=== PATIENT | female | born 1975 | race Caucasian/White ===

== ENCOUNTER 2019-03-14 11:12 | Emergency (ER) | payer OTHER ==
[~2019-03-14] VITALS: Ht 152.4 cm; Wt 67.1 kg
--- NOTE | 2019-03-14 11:19 | NUR ---
Patient ambulated to bed 3 with family. RN evaluating patient at bedside.
[2019-03-14 11:21] VITALS: BP 120/81
--- NOTE | 2019-03-14 11:38 | NUR ---
IV INSERTED AND LABS DRAWN BEDSIDE
--- NOTE | 2019-03-14 11:39 | NUR ---
PT STATES SHE HAD A CERVICAL BIOPSY TO CHECK FOR CERVICAL CANCER (TODAY) AND WAS TOLD BY HER OBGYN TO COME TO THE ER TO HAVE HER "LABS CHECKED FOR SURGERY". PT SKIN COLORED PALE UPON VISUAL EXAMINATION. VSS. [id number]. BED IS DOWN, LOCKED, BED RAIL X 1, ERMD TO SEE PT. HX: HTN RX: NAMES UNKNOWN
--- NOTE | 2019-03-14 12:17 | NUR ---
Dr. Harry evaluating patient at bedside.
[2019-03-14 12:49] LABS: BASOPHILS # (AUTO) 0.1 K/uL (0.00-0.22); BASOPHILS % (AUTO) 0.8 % (0.0-2.0); EOSINOPHILS # (AUTO) 0.8 K/uL (0-0.4); EOSINOPHILS % (AUTO) 7.5 % (0.0-4.0); HEMATOCRIT 28.4 % (36-48); HEMOGLOBIN 9.1 g/dL (12.0-16.0); LYMPHOCYTES # (AUTO) 1.9 K/uL (2.5-16.5); LYMPHOCYTES % (AUTO) 16.8 % (20.5-51.1); MEAN CORPUSCULAR HEMOGLOBIN 26 pg (27-31); MEAN CORPUSCULAR HGB CONC 32 g/dL (33-37); MEAN CORPUSCULAR VOLUME 82.3 fL (80-94); MONOCYTES # (AUTO) 0.7 K/uL (0.8-1.0); MONOCYTES % (AUTO) 5.8 % (1.7-9.3); NEUTROPHILS # (AUTO) 7.8 K/uL (1.8-7.7); NEUTROPHILS % (AUTO) 69.1 % (42.2-75.2); PLATELET COUNT (AUTO) 794 K/uL (140-450); RED BLOOD CELL COUNT(AUTO) 3.45 MIL/uL (4.20-5.40); WHITE BLOOD COUNT (AUTO) 11.3 K/uL (4.8-10.8)
[2019-03-14 12:57] LABS: PROTHROMBIN TIME 9.4 secs (10.8-13.4)
[2019-03-14 13:07] LABS: CARBON DIOXIDE 29.1 mmol/L (21-32); CREATININE 1.1 mg/dL (0.6-1.3); POTASSIUM 4.1 mmol/L (3.5-5.1)
[2019-03-14 13:13] LABS: ALBUMIN 2.6 g/dL (3.4-5.0); TOTAL BILIRUBIN 0.2 mg/dL (0.0-1.0)
--- NOTE | 2019-03-14 13:21 | NUR ---
VSS AT THIS TIME. PT [id number]
[2019-03-14 13:42] VITALS: BP 97/54
--- NOTE | 2019-03-14 13:42 | NUR ---
Patient discharged with v/s stable. Written and verbal after care instructions given and explained. Patient verbalized understanding. Ambulatory with steady gait. All questions addressed prior to discharge. Advised to follow up with OBGYN. PT GIVEN A COPY OF ALL LAB RESULTS.
== END 2019-03-14 13:42 | disposition home or self-care (01) ==
LOC: MED 11:47
DX: N93.9 Abnormal uterine and vaginal bleeding, unspecified (principal); D64.9 Anemia, unspecified; I10 Essential (primary) hypertension; Z85.41 Personal history of malignant neoplasm of cervix uteri
CPT/HCPCS: 36415; 80053; 81025; 85025; 85610; 85730; 86886; 86900; 86901; 93005; 99284

== ENCOUNTER 2020-01-19 18:55 | Emergency (ER) | payer OTHER ==
[~2020-01-19] VITALS: Ht 152.4 cm; Wt 72.6 kg
[2020-01-19 19:00] VITALS: BP 150/83
--- NOTE | 2020-01-19 19:16 | NUR ---
ERMD AT BEDSIDE
--- NOTE | 2020-01-19 19:17 | NUR ---
44 Y/O FEMALE C/O LOWER ABD PAIN X2DAYS. 7/10 SHARP, THROBBING PAIN. TENDER TO TOUCH. DENIES FEVER, N/V/D, COUGH, SICK CONTACT, OR TRAUMA TO ABDOMEN. BOWEL SOUNDS ACTIVE. PMH: CERVICAL CANCER TX WITH CHEMO & RADIATION, HTN, MIGRAINES NKA. MEDS: ATENOLOL, BUNAZEPRL-HYDROCHLORTHIAZIDE, FIORICET, ERGOCALCIFEROL, MISC. DEVICES, OMEPRAZOLE, TRAMADOL
[2020-01-19] MEDS ORDERED: KETOROLAC 15 MG/ML VIAL IVP ONE (19:25)
[2020-01-19] MEDS ORDERED: ACETAMINOPHEN 325 MG TAB PO ONE (19:25)
--- NOTE | 2020-01-19 20:02 | NUR ---
[facility].
--- NOTE | 2020-01-19 20:20 | NUR ---
Pelvic exam performed by ANN HENNESSY with this RN at bedside for entire examination. Patient tolerated procedure well. Patient assisted to position of comfort after examination.
[2020-01-19 20:23] LABS: BASOPHILS % (AUTO) 0.5 % (0.0-2.0); EOSINOPHILS # (AUTO) 0.1 K/uL (0-0.4); EOSINOPHILS % (AUTO) 2.6 % (0.0-4.0); HEMATOCRIT 34.5 % (36-48); HEMOGLOBIN 11.6 g/dL (12.0-16.0); LYMPHOCYTES # (AUTO) 0.9 K/uL (2.5-16.5); LYMPHOCYTES % (AUTO) 18.1 % (20.5-51.1); MEAN CORPUSCULAR HEMOGLOBIN 31 pg (27-31); MEAN CORPUSCULAR HGB CONC 34 g/dL (33-37); MEAN CORPUSCULAR VOLUME 93.3 fL (80-94); MONOCYTES # (AUTO) 0.3 K/uL (0.8-1.0); MONOCYTES % (AUTO) 6.5 % (1.7-9.3); NEUTROPHILS # (AUTO) 3.5 K/uL (1.8-7.7); NEUTROPHILS % (AUTO) 72.3 % (42.2-75.2); PLATELET COUNT (AUTO) 283 K/uL (140-450); RED CELL DISTRIBUTION WIDTH 13.1 % (11.6-13.7); WHITE BLOOD COUNT (AUTO) 4.8 K/uL (4.8-10.8)
[2020-01-19 20:23] LABS: BILIRUBIN,URINE NEGATIVE (NEGATIVE); BLOOD, URINE NEGATIVE (NEGATIVE); COLOR,URINE YELLOW (YELLOW); LEUKOCYTE ESTERASE ,URINE 1+ (NEGATIVE); NITRITE, URINE NEGATIVE (NEGATIVE); PH,URINE 5.5 (5.0-9.0); UGLUCOSE NEGATIVE (NEGATIVE)
[2020-01-19 20:24] LABS: APPEARANCE,URINE HAZY (CLEAR)
[2020-01-19 20:34] LABS: RBC,URINE NONE SEEN /HPF (0-5)
[2020-01-19 20:43] LABS: CARBON DIOXIDE 29.5 mmol/L (21-32); CREATININE 1.5 mg/dL (0.6-1.3); POTASSIUM 3.5 mmol/L (3.5-5.1); TOTAL BILIRUBIN 0.3 mg/dL (0.0-1.0)
--- NOTE | 2020-01-19 22:16 | NUR ---
PT RESTING IN BED, RESPIRATIONS EVEN AND UNLABORED. CHEST RISE IS SYMMETRICAL. SAFETY PRECAUTIONS IN PLACE. WILL CONTINUE TO MONITOR.
--- NOTE | 2020-01-19 23:09 | NUR ---
ERMD AT BEDSIDE
[2020-01-19] MEDS ORDERED: HYDROcodone/APAP 5/325 MG 1 TAB TAB PO ONE ×2 (23:15→23:50)
[2020-01-19] MEDS ORDERED: NACL 0.9% 1,000 ML IV ONE ×2 (23:15→23:50)
[2020-01-19] MEDS ORDERED: HYDROcodone/APAP 5/325 MG 1 TAB TAB ONE (23:20)
--- NOTE | 2020-01-19 23:26 | NUR ---
NORCO TAB GIVEN 325 MG PO AND 1L 0.9 NORMAL SALINE BOLUS RUNNING, IV SITE LAC. WILL CONTINUE TO MONITOR.
--- NOTE | 2020-01-20 01:03 | NUR ---
Patient discharged with v/s stable. Written and verbal after care instructions given and explained. Patient alert, oriented and verbalized understanding of instructions. Ambulatory with steady gait. All questions addressed prior to discharge. ID band removed. IV Removed. Patient advised to follow up with PMD. Rx of KEFLEX AND NORCO given. Patient educated on indication of medication including possible reaction and side effects. Opportunity to ask questions provided and answered.
[2020-01-20 01:08] VITALS: BP 145/70
== END 2020-01-20 01:03 | disposition home or self-care (01) ==
LOC: MED 18:55
DX: N39.0 Urinary tract infection, site not specified (principal); I10 Essential (primary) hypertension; Z85.41 Personal history of malignant neoplasm of cervix uteri
CPT/HCPCS: 36415; 74177; 80053; 81001; 81025; 85025; 87210; 96361; 96374; 99285; J1885; J7030; Q9967; 96360

== ENCOUNTER 2021-03-28 00:55 | Emergency (ER) | payer OTHER ==
[~2021-03-28] VITALS: Ht 152.4 cm; Wt 77.1 kg
[2021-03-28 01:05] VITALS: BP 118/53
--- NOTE | 2021-03-28 01:08 | NUR ---
TO LOBBY A/W BED AMBULATORY
[2021-03-28] MEDS ORDERED: NACL 0.9% 1,000 ML IV ONE (01:40)
[2021-03-28 01:50] LABS: BASOPHILS % (AUTO) 0.6 % (0.0-2.0); EOSINOPHILS # (AUTO) 0.2 K/uL (0-0.4); EOSINOPHILS % (AUTO) 2.9 % (0.0-4.0); HEMATOCRIT 34.8 % (36-48); HEMOGLOBIN 11.9 g/dL (12.0-16.0); LYMPHOCYTES # (AUTO) 1.2 K/uL (2.5-16.5); LYMPHOCYTES % (AUTO) 17.6 % (20.5-51.1); MEAN CORPUSCULAR HEMOGLOBIN 31 pg (27-31); MEAN CORPUSCULAR HGB CONC 34 g/dL (33-37); MEAN CORPUSCULAR VOLUME 90.5 fL (80-94); MONOCYTES # (AUTO) 0.5 K/uL (0.8-1.0); MONOCYTES % (AUTO) 7.4 % (1.7-9.3); NEUTROPHILS # (AUTO) 4.9 K/uL (1.8-7.7); NEUTROPHILS % (AUTO) 71.5 % (42.2-75.2); PLATELET COUNT (AUTO) 359 K/uL (140-450); RED BLOOD CELL COUNT(AUTO) 3.84 MIL/uL (4.20-5.40); RED CELL DISTRIBUTION WIDTH 13.9 % (11.6-13.7); WHITE BLOOD COUNT (AUTO) 6.8 K/uL (4.8-10.8)
[2021-03-28 01:50] LABS: APPEARANCE,URINE CLEAR (CLEAR); BILIRUBIN,URINE NEGATIVE (NEGATIVE); BLOOD, URINE TRACE-I (NEGATIVE); COLOR,URINE YELLOW (YELLOW); LEUKOCYTE ESTERASE ,URINE NEGATIVE (NEGATIVE); NITRITE, URINE NEGATIVE (NEGATIVE); UGLUCOSE NEGATIVE (NEGATIVE)
[2021-03-28 02:05] LABS: ALBUMIN 3.5 g/dL (3.4-5.0); ANION GAP 15.9 (8-16); CARBON DIOXIDE 25.4 mmol/L (21-32); CREATININE 1.4 mg/dL (0.6-1.3); POTASSIUM 3.3 mmol/L (3.5-5.1); TOTAL BILIRUBIN 0.1 mg/dL (0.0-1.0)
[2021-03-28 02:33] LABS: RBC,URINE 0-5 /HPF (0-5); WBC,URINE 0-5 /HPF (0-5)
--- NOTE | 2021-03-28 03:22 | NUR ---
Dr. Espinoza examining patient.
[2021-03-28] MEDS ORDERED: KETOROLAC 30 MG/ML VIAL IVP ONE (03:30)
[2021-03-28] MEDS ORDERED: ACET-8386 PO (03:39)
[2021-03-28] MEDS ORDERED: OMEP40EC24 PO (03:39)
--- NOTE | 2021-03-28 04:10 | NUR ---
IV removed, catheter intact and site benign. Applied folded 4x4 gauze and tape to stop bleeding.
[2021-03-28 04:12] VITALS: BP 112/70
--- NOTE | 2021-03-28 04:12 | NUR ---
Patient discharged with v/s stable. Written and verbal after care instructions given and explained. Patient alert, oriented and verbalized understanding of instructions. Ambulatory with steady gait. All questions addressed prior to discharge. ID band removed. Patient advised to follow up with PMD. Rx of hydrocodon-acetaminophen 5-325, and prilosec given. Patient educated on indication of medication including possible reaction and side effects. Opportunity to ask questions provided and answered.
== END 2021-03-28 04:12 | disposition home or self-care (01) ==
LOC: MED 00:55
DX: R10.12 Left upper quadrant pain (principal); I10 Essential (primary) hypertension; Z90.710 Acquired absence of both cervix and uterus; Z85.41 Personal history of malignant neoplasm of cervix uteri
CPT/HCPCS: 36415; 74176; 80053; 81001; 81025; 83690; 84703; 85025; 87086; 96361; 96374; 99284; J1885; J7030